=== PATIENT | female | born 1995 | race Caucasian/White ===

== ENCOUNTER 2016-09-16 09:32 | Emergency (ER) | payer MEDICAID ==
[~2016-09-16] VITALS: Ht 170.2 cm; Wt 54.4 kg
[2016-09-16 09:48] VITALS: BP 123/66; PULSE 84; RESP 16; TEMP 97.6; O2SAT 96
--- NOTE | 2016-09-16 09:52 | NUR ---
Patient to ER bed 6 to gown for evaluation. Side rails up. Report given to FERNANDA PLUNKETT.
--- NOTE | 2016-09-16 10:00 | NUR ---
ER at bedside examining patient.
--- NOTE | 2016-09-16 10:03 | NUR ---
Pt presents to ED c/o sore throat and cough x 2 days. Pt has no acute distress noted. No med hx.
--- NOTE | 2016-09-16 10:10 | NUR ---
Patient given written and verbal discharge instructions and verbalizes understanding. ER MD discussed with patient the results and treatment provided. Given copies of tests performed in ER. Patient in stable condition. ID arm band removed. Patient educated on pain management and to follow up with PMD. Pain Scale 2. Opportunity for questions provided and answered.
[2016-09-16 10:15] VITALS: BP 123/66; PULSE 84; RESP 16; TEMP 97.6; O2SAT 96
== END 2016-09-16 10:15 | disposition home or self-care (01) ==
LOC: SED 09:32
DX: J06.9 Acute upper respiratory infection, unspecified (principal)
CPT/HCPCS: 99281

== ENCOUNTER 2020-08-14 14:30 | Emergency (ER) | payer MEDICAID, SELFPAY ==
[~2020-08-14] VITALS: Ht 167.6 cm; Wt 54.4 kg
[2020-08-14 15:00] VITALS: BP_SYST 118
--- NOTE | 2020-08-14 15:10 | NUR ---
TRIAGED PT AND PLACED IN WHEELCHAIR IN TENT WAITING AREA.
--- NOTE | 2020-08-14 15:25 | NUR ---
ER Dr. Vianey Snell at bedside examining patient.
[2020-08-14] MEDS ORDERED: NACL 0.9% 1,000 ML IV ONE ×2 (15:45→16:45)
[2020-08-14] MEDS ORDERED: ACETAMINOPHEN 500 MG TABLET PO ONE (15:45)
[2020-08-14] MEDS ORDERED: PROCHLORPERAZINE EDISYLATE 10 MG/2 ML VIAL IVP ONE (15:45)
[2020-08-14] MEDS ORDERED: DIPHENHYDRAMINE INJ 50 MG/ML VIAL IVP ONE (15:45)
[2020-08-14] MEDS ORDERED: VANCOMYCIN HCL 1,000 MG in NS 250 ML IV ONE (16:00)
[2020-08-14] MEDS ORDERED: ACYCLOVIR IV 500 MG in D5W 100 ML IV ONE (16:00)
[2020-08-14] MEDS ORDERED: VANCOMYCIN HCL 1000 MG/VIAL IV ONE (16:21)
[2020-08-14] MEDS ORDERED: ACYCLOVIR SODIUM 50 MG/ML VIAL IV ONE (16:22)
[2020-08-14] MEDS ORDERED: cefTRIAXone 2 GM VIAL ONE ×2 (16:22→16:25)
[2020-08-14 16:24] LABS: BASOPHILS % (AUTO) 0.3 % (0.0-2.0); EOSINOPHILS % (AUTO) 0.3 % (0.0-4.0); HEMATOCRIT 42.1 % (36-48); HEMOGLOBIN 14.3 g/dL (12.0-16.0); LYMPHOCYTES # (AUTO) 1.8 K/uL (1.0-5.5); LYMPHOCYTES % (AUTO) 19.5 % (20.5-51.5); MEAN CORPUSCULAR HEMOGLOBIN 30 pg (27-31); MEAN CORPUSCULAR HGB CONC 34 % (32-36); MEAN CORPUSCULAR VOLUME 90 fL (79.0-98.0); MONOCYTES # (AUTO) 0.6 K/uL (0.0-1.0); MONOCYTES % (AUTO) 6.2 % (1.7-9.3); NEUTROPHILS # (AUTO) 6.7 K/uL (1.8-7.7); NEUTROPHILS % (AUTO) 73.7 % (40.0-70.0); PLATELET COUNT (AUTO) 226 K/uL (130-430); WHITE BLOOD COUNT (AUTO) 9.1 K/uL (4.8-10.8)
[2020-08-14 16:57] LABS: CALCIUM 9.8 mg/dL (8.4-11.0); CREATININE 0.71 mg/dL (0.55-1.30); POTASSIUM 3.6 mmol/L (3.5-5.1)
[2020-08-14 17:03] LABS: PROTHROMBIN TIME 10.2 SECS (9.5-12.5)
[2020-08-14 17:20] LABS: ALBUMIN 4.4 g/dL (3.4-4.8); BILIRUBIN,DIRECT 0.2 mg/dL (0.0-0.3); TOTAL BILIRUBIN 0.3 mg/dL (0.0-1.0)
--- NOTE | 2020-08-14 18:05 | NUR ---
ALERT, CALM, RESP UNLABORED, SKIN WARM AND DRY
[2020-08-14 18:19] LABS: BILIRUBIN,URINE NEGATIVE (NEGATIVE); BLOOD, URINE 2+ (NEGATIVE); COLOR,URINE YELLOW (YELLOW); GLUCOSE,URINE NEGATIVE (NEGATIVE); KETONES,URINE NEGATIVE (NEGATIVE); LEUKOCYTE ESTERASE ,URINE NEGATIVE (NEGATIVE); NITRITE, URINE NEGATIVE (NEGATIVE); PROTEIN URINE NEGATIVE (NEGATIVE); UROBILINOGEN,URINE 0.2 (0.2-1.0)
[2020-08-14 19:05] LABS: CLARITY/URINE SLIGHTLY HAZY (CLEAR)
--- NOTE | 2020-08-14 19:10 | NUR ---
LABS AND CT HEAD COMPLETED. MOTHER AT BEDSIDE
[2020-08-14 19:11] LABS: BACTERIA,URINE MODERATE /HPF (None Seen); MUCUS,URINE 1+ /LPF (None Seen)
--- NOTE | 2020-08-14 19:20 | NUR ---
PT BIB MOTHER A&OX3 CC HEADACHE TYPE PAIN FOR THE LAST 2 DAYS PT HAS A HISTORY OF HERPES NO KNOWN ALLERGIES PT CANNOT SIT UP WITHOUT PAIN PT LAYING IN POSITION ON [facility] VITAL SIGN STABLE WILL CONTINUE TO MONITOR
[2020-08-14] MEDS ORDERED: LIDOCAINE 1%, 20 ML MDV 20 ML ONE (19:35)
--- NOTE | 2020-08-14 20:00 | NUR ---
PT DOES NOT DISRE TO HAVE LP PERFOMRED MD LEWIS SPEAKING WITH PT
[2020-08-14 20:05] VITALS: BP_SYST 118
--- NOTE | 2020-08-14 20:05 | NUR ---
PT SIGNNED AMA WITH MD LEWIS DOES NOT DISRE TO HAVE LUMBAR PUNCTURE PERFORMED OTHERWISE Patient given written and verbal discharge instructions and verbalizes understanding. ER MD LEWIS discussed with patient the results and treatment provided. Patient in stable condition. ID arm band removed. IV catheter removed intact and dressing applied, no active bleeding. Rx of CIPRO given. Patient educated on pain management and to follow up with PMD. Pain Scale 3/10. Opportunity for questions provided and answered. Medication side effect fact sheet provided.
== END 2020-08-14 20:05 | disposition left against medical advice (07) ==
LOC: SED 14:30
DX: R51.9 Headache, unspecified (principal); Z20.828 Contact with and (suspected) exposure to other viral communicable diseases
CPT/HCPCS: 36415; 70450; 70496; 76376; 80048; 80076; 81000; 81025; 84702; 85025; 85610; 87040; 87086; 87426; 96365; 96366; 96368; 96375; 99285; J0133; J0696; J0780; J1200; J2001; J3370; J7030; Q9967